=== PATIENT | male | born 1955 | race African-American/Black ===

== ENCOUNTER 2021-09-14 08:17 | Outpatient (CLI) | payer MEDICARE ==
[2021-09-14 09:02] LABS: Estimated GFR-MDRD - POC Greater than 90
[2021-09-14] MEDS ORDERED: Iopamidol 370 76% 100 ML VIAL ONE (09:37)
== END 2021-09-14 08:18 | disposition home or self-care (01) ==
LOC: BICCT 08:17
PROVIDERS: ATTEND Internal Medicine Gastroenterology
DX: R10.9 Unspecified abdominal pain (principal)
CPT/HCPCS: 74160; 82565